=== PATIENT | female | born 1965 | race Native Hawaiian/Other Pacific Islander ===

== ENCOUNTER 2016-06-09 13:22 | Emergency (ER) | payer OTHER ==
[~2016-06-09] VITALS: Ht 162.6 cm; Wt 78.5 kg
== END 2016-06-09 14:06 | disposition home or self-care (01) ==
LOC: ED 13:22
DX: Z76.5 Malingerer [conscious simulation] (principal); G89.29 Other chronic pain
CPT/HCPCS: 99282